=== PATIENT | female | born 1945 | race Caucasian/White ===

== ENCOUNTER 2018-08-10 12:17 | Inpatient (IN) | payer MEDICARE ==
[~2018-08-10] VITALS: Ht 165.1 cm; Wt 54.4 kg
--- NOTE | 2018-08-10 12:17 | NUR ---
PT [facility]RA FROM [facility] FOR SYNCOPAL EPISODE, PT VOMITTED ENVIRONMENTAL TECHNICIAN; PT AAOX4, PT ON MONITOR, VSS, NAD NOTED, MD AT BEDSIDE FOR EVAL
[2018-08-10] MEDS ORDERED: ONDANSETRON HCL/PF 4 MG/2 ML VIAL ONE (12:22)
[2018-08-10] MEDS ORDERED: ONDANSETRON HCL/PF 4 MG/2 ML VIAL IVP ONE (12:30)
[2018-08-10 12:31] LABS: BASOPHILS # (AUTO) 0.2 /CMM (0.0-0.2); EOSINOPHILS % (AUTO) 0.5 % (0.0-6.0); HEMATOCRIT 40 % (33-45); HEMOGLOBIN 13.4 g/dL (11.5-14.8); LYMPHOCYTES % (AUTO) 12.2 % (20.0-44.0); MEAN CORPUSCULAR HGB CONC 34 g/dl (31.0-36.0); MEAN CORPUSCULAR VOLUME 88 fL (82-100); MONOCYTES # (AUTO) 0.8 /CMM (0.1-1.30); MONOCYTES % (AUTO) 5.3 % (2.0-12.0); PLATELET COUNT (AUTO) 519 /CMM (150-450); RED BLOOD CELL COUNT(AUTO) 4.52 MIL/uL (4.0-5.2); WHITE BLOOD COUNT (AUTO) 16.1 K/uL (4.3-11.0)
[2018-08-10 12:48] LABS: CALCIUM, SERUM 10.3 mg/dL (8.5-10.1); CARBON DIOXIDE 31 mmol/L (21-32); CHLORIDE 99 mmol/L (98-107); GLUCOSE 139 mg/dL (74-106); POTASSIUM 3.1 mmol/L (3.5-5.1); SODIUM SERUM 137 mmol/L (136-145); UREA NITROGEN, BLOOD 17 mg/dL (7-18)
[2018-08-10 12:54] LABS: ALANINE AMINOTRANSFERASE 20 U/L (12-78); ALBUMIN 3.6 g/dL (3.4-5.0); ALKALINE PHOSPHATASE 78 U/L (46-116); ASPARTATE AMINOTRANSFERASE 19 U/L (15-37); BILIRUBIN,DIRECT 0.1 mg/dL (0.0-0.2); BILIRUBIN,TOTAL 0.4 mg/dL (0.2-1.0); TOTAL PROTEIN, SERUM 7.4 g/dL (6.4-8.2)
[2018-08-10] MEDS ORDERED: ASPIRIN 325 MG TABLET PO ONE (13:30)
[2018-08-10] MEDS ORDERED: ASPIRIN 325 MG TABLET ONE (13:56)
[2018-08-10] MEDS ORDERED: ATOR20TA PO (14:27)
[2018-08-10] MEDS ORDERED: LOSA100T31 PO (14:27)
[2018-08-10] MEDS ORDERED: AMLO5TAB9 PO (14:27)
--- NOTE | 2018-08-10 14:31 | NUR ---
BED 102
--- NOTE | 2018-08-10 15:09 | NUR ---
REPORT GIVEN TO MYRNA GREGG FOR EITAN
[2018-08-10] MEDS ORDERED: METF-440 PO (15:25)
--- NOTE | 2018-08-10 15:45 | NUR ---
PT TRANSFERRED TO 1ST FLOOR MS/TELE SEAN VIA ACLS PROTOCOL
[2018-08-10 15:48] VITALS: BP 161/84
--- NOTE | 2018-08-10 16:00 | NUR ---
telegraph service rater note received patient from er with dx syncope under care dr Uriostegui, alert oriented x3 ,family at bedside, tele monitor placed with nsr hr 89 , hospital orientation done , vs taken, belonging checked , plan of care discussed with patient , call light within reach ,bed in lowest and locked position, dr uriostegui at bedside , no sob noted no c]o pain or discomfort, respiration unlabored and even, will cont to monitor closely
[2018-08-10] MEDS ORDERED: ONDANSETRON HCL/PF 4 MG/2 ML VIAL IVP PRN (17:00)
[2018-08-10] MEDS ORDERED: MAG HYDROX/AL HYDROX/SIMETH 30 ML UDC PO PRN (17:00)
[2018-08-10] MEDS ORDERED: HYDROCODONE/APAP 5/325MG 1 EACH TABLET PO PRN (17:00)
[2018-08-10] MEDS ORDERED: DEXTROSE 50%-WATER 50 ML DISP.SYRIN IV PRN (17:00)
[2018-08-10] MEDS ORDERED: MAGNESIUM HYDROXIDE 30 ML UDC PO PRN (17:00)
[2018-08-10] MEDS ORDERED: ZOLPIDEM TARTRATE 5 MG TABLET PO PRN (17:00)
[2018-08-10] MEDS ORDERED: Z GUARD REMEDY 2 OZ OINT TP PRN (17:00)
[2018-08-10] MEDS ORDERED: INSULIN REGULAR, HUMAN 100 UNIT/ML 3 ML VIAL SQ PRN (17:00)
[2018-08-10] MEDS ORDERED: ACETAMINOPHEN 325 MG TABLET PO PRN (17:00)
[2018-08-10] MEDS: METFORMIN 500 MG TABLET PO SCH (17:41)
[2018-08-10] MEDS: POTASSIUM CHLORIDE 20 MEQ TAB.PRT.SR PO SCH ×2 (17:41→18:27)
[2018-08-10] MEDS: ENOXAPARIN SODIUM 40 MG/0.4 ML DISP.SYRIN SQ SCH (17:44)
[2018-08-10] MEDS: BLOOD SUGAR DIAGNOSTIC 1 EACH STRIP IN SCH (17:45)
[2018-08-10] MEDS: IV NS 0.9% 1,000 ML IV PRN (17:46)
--- NOTE | 2018-08-10 18:29 | NUR ---
INFORMATION MANAGER NOTE HAVING DINNER , ABLE TO EAT SELF , ALL NEEDS ATTENDED ASSISTED TO BSC, ABLE TO MAKE BM ,KEEP CLEAN DRY, CONT ON IVF ORDERED , NOT IN ACUTE DISTRESS
--- NOTE | 2018-08-10 19:39 | NUR ---
MEDICATION NURSE NOTE: RECEIVED PT ON BED ALERT AND AWAKE. ABLE TO MAKE NEEDS KNOWN. NO ACUTE DISTRESS NOTED. DENIES PAIN AND DISCOMFORT. NO COMPLAINTS OF NAUSEA AND VOMITING AT THIS TIME. ON ROOM AIR, SATURATING WELL. BREATHING EVEN AND UNLABORED WITH NORMAL RESPIRATIONS. ON TELE MONITOR SINUS RHYTHM HR 77BPM. IV ON RIGHT ANTECUBITAL #18 INTACT AND PATENT, FLUSHING WELL. KEPT CLEAN, DRY AND COMFORTABLE. CALL LIGHT PLACED WITHIN REACH. SIDE RAILS UP X2. BED LOCKED AND IN LOWEST POSITION. WILL CONTINUE TO MONITOR PT.
[2018-08-10 20:00] VITALS: BP 156/76
--- NOTE | 2018-08-10 20:11 | NUR ---
INITIAL CAROTID DUPLEX IMAGING SHOWED 50-70% OCCLUSION ON BILATERAL ICA. ADVISED ATTENDING RN (TERESA) OF PRELIMINARY FINDING AND CALLED MICHELLE DUMONT) FOR READING BY RADIOLOGIST.
[2018-08-10] MEDS: ATORVASTATIN 10 MG TABLET PO SCH (21:17)
[2018-08-11] VITALS: BP 152/83
[2018-08-11] MEDS: BLOOD SUGAR DIAGNOSTIC 1 EACH STRIP IN SCH ×3 (00:07→12:02)
[2018-08-11 04:00] VITALS: BP 145/85
[2018-08-11] MEDS: IV NS 0.9% 1,000 ML IV PRN (05:17)
[2018-08-11 06:41] LABS: BASOPHILS # (AUTO) 0.1 /CMM (0.0-0.2); BASOPHILS % (AUTO) 0.4 % (0.0-2.0); EOSINOPHILS % (AUTO) 1.1 % (0.0-6.0); HEMATOCRIT 37 % (33-45); HEMOGLOBIN 12.2 g/dL (11.5-14.8); LYMPHOCYTES # (AUTO) 1.5 /CMM (0.8-4.8); LYMPHOCYTES % (AUTO) 9.8 % (20.0-44.0); MEAN CORPUSCULAR HGB CONC 33 g/dl (31.0-36.0); MEAN CORPUSCULAR VOLUME 89 fL (82-100); MONOCYTES % (AUTO) 6.7 % (2.0-12.0); NEUTROPHILS # (AUTO) 12.2 /CMM (1.8-8.9); PLATELET COUNT (AUTO) 416 /CMM (150-450); RED BLOOD CELL COUNT(AUTO) 4.17 MIL/uL (4.0-5.2); WHITE BLOOD COUNT (AUTO) 14.9 K/uL (4.3-11.0)
--- NOTE | 2018-08-11 06:47 | NUR ---
WOOD PILER NOTE: NO CHANGES NOTED THROUGHOUT THE SHIFT. NO APPARENT DISTRESS NOTED. NO COMPLAINTS OF PAIN OR DISCOMFORT AT THIS TIME. NO SOB NOTED. ON TELE MONITOR SINUS RHYTHM HR 72BPM. ASSISTED PT ON BEDSIDE COMMODE, NO N/V/D NOTED. KEPT CLEAN, DRY AND COMFORTABLE. CALL LIGHT PLACED WITHIN REACH. SAFETY AND FALL PRECAUTIONS OBSERVED AND MAINTAINED. WILL ENDORSE TO DAY SHIFT RN FOR CONTINUITY OF CARE.
[2018-08-11 06:49] LABS: CALCIUM, SERUM 9.3 mg/dL (8.5-10.1); CARBON DIOXIDE 28 mmol/L (21-32); CHLORIDE 106 mmol/L (98-107); CREATININE 0.7 mg/dL (0.6-1.3); GLUCOSE 102 mg/dL (74-106); MAGNESIUM 1.6 mg/dL (1.8-2.4); PHOSPHORUS 3.3 mg/dL (2.5-4.9); POTASSIUM 3.9 mmol/L (3.5-5.1); SODIUM SERUM 143 mmol/L (136-145); UREA NITROGEN, BLOOD 12 mg/dL (7-18)
[2018-08-11 06:54] LABS: CHOLESTEROL 154 mg/dL (<200); HDL CHOLESTEROL 56 mg/dL (40-60); LDL 79 mg/dL (0-99); THYROID STIMULATING HORMONE 3.835 uIU/mL (0.358-3.74); TRIGLYCERIDES 131 mg/dL (30-150)
--- NOTE | 2018-08-11 07:35 | NUR ---
RV DETAILER OPENING NOTES RECEIVED BEDSIDE REPORT FROM [facility]. PATIENT SLEEPING ABLE TO AROUSE WITH VOICE AND TOUCH. ALERT AND ORIENTED X4. AMBULATORY TO BEDSIDE COMMODE NO SIGNS OR SYMPTOMS OF RESPIRATORY DISTRESS OR ACUTE PAIN NOTES SINUS RHYTHM ON MONITOR 70'S. SKIN INTACT IVF RUNNING IN RAC @75ML/HR . SAFETY PRECAUTIONS IN PLACE BED IN LOW POSITION CALL LIGHT WITHIN REACH WILL CONT TO MONITOR
--- NOTE | 2018-08-11 07:40 | NUR ---
RN OPENING NOTES RECEIVED BEDSIDE REPORT FROM EVENTS INTERN RN. PT IS ASLEEP AND IS AWAKEN TO TOUCH AND SOUND. PT IS A&OX3. PT HAS AN 18 GAUGE RIGHT AC RUNNING NS @75 MLHR. PT REPORTS NO PAIN AND NO SYMPTOMS OF RESPIRATORY DISTRESS. PT AMBULATES TO BEDSIDE COMMODE. PT HR IS 70'S. CALL LIGHT WITHIN REACH AND BED IS IN LOWEST POSITION AND LOCKED. WILL CONTINUE TO MONITOR
[2018-08-11 08:00] VITALS: BP 141/72
[2018-08-11] MEDS: AMLODIPINE BESYLATE 5 MG TABLET PO SCH (08:21)
[2018-08-11] MEDS: METFORMIN 500 MG TABLET PO SCH ×2 (08:21→16:24)
[2018-08-11] MEDS: ASPIRIN EC 81 MG TABLET.DR PO SCH (08:21)
[2018-08-11] MEDS: LOSARTAN POTASSIUM 50 MG TABLET PO SCH (08:22)
--- NOTE | 2018-08-11 09:04 | NUR ---
RN NOTES SPOKE WITH GONZALEZ IN REGARDS TO GETTING MEDICATION HOME LIST. CONCERNS FOR PATIENTS CARE AT HOME LIVES ALONE AND NO HELP. THIS IS HER 2ND EPISODE OF SYNCOPE EPISODE. WOULD LIKE AFTERSCHOOL TO FOLLOW UP WITH POSSIBLE HOME CARE.
[2018-08-11] MEDS ORDERED: Magnesium 1GM/D5W 100ML PREMIX 100 ML IV SCH (09:34)
[2018-08-11] MEDS: Magnesium 1GM/D5W 100ML PREMIX 100 ML IV SCH ×2 (10:12→11:31)
--- NOTE | 2018-08-11 10:21 | NUR ---
STAFF CYTOTECHNOLOGIST NOTES RECEIVED MEDS FROM JOINER APPRENTICE VIA FAX
[2018-08-11] MEDS: CARBIDOPA/LEVODOPA 25/100 MG 1 UDTAB PO SCH ×3 (11:31→16:24)
[2018-08-11 12:00] VITALS: BP 177/93
[2018-08-11] MEDS: LOPERAMIDE HCL (2 MG CAP) 2 MG CAPSULE PO PRN (13:42)
[2018-08-11 15:20] LABS: ABG BASE EXCESS 2.2 mmol/L; ABG OXYGEN SATURATION 96.7 % (92.0-98.5); ABG PCO2 37.2 mmHg (35.0-45.0); ABG PH 7.461 (7.350-7.450); ABG PO2 88.2 mmHg (75.0-100.0); COHb 0.7 % (0.5-1.5); MetHb 0.5 % (0.0-1.5); O2Hb 95.5 % (94.0-97.0); SITE, ABG Right Radial; VENT MODE, BG RA
[2018-08-11 16:00] VITALS: BP 172/76
[2018-08-11] MEDS: ENOXAPARIN SODIUM 40 MG/0.4 ML DISP.SYRIN SQ SCH (16:27)
[2018-08-11] MEDS ORDERED: INSULIN REGULAR, HUMAN 100 UNIT/ML 3 ML VIAL SQ PRN ×2 (16:30→17:30)
[2018-08-11] MEDS ORDERED: BLOOD SUGAR DIAGNOSTIC 1 EACH STRIP IN PRN (16:30)
[2018-08-11] MEDS ORDERED: DEXTROSE 50%-WATER 50 ML DISP.SYRIN IV PRN (16:30)
--- NOTE | 2018-08-11 19:03 | NUR ---
RN CLOSING NOTES GAVE BEDSIDE REPORT TO CHARGING OPERATOR RN. PT IS AWAKE TO TOUCH AND SOUND. PT IS A&OX3. PT HAS AN 18 GAUGE RIGHT AC RUNNING NS @75 MLHR. PT REPORTS NO PAIN AND NO SYMPTOMS OF RESPIRATORY DISTRESS. PT AMBULATES TO BEDSIDE COMMODE. PT HR IS 70'S. CALL LIGHT WITHIN REACH AND BED IS IN LOWEST POSITION AND LOCKED. ENDORSED CONTINUITY OF CARE TO CHARGING OPERATOR RN
--- NOTE | 2018-08-11 19:30 | NUR ---
TUCK POINTER NOTE: RECEIVED PT ON BED ALERT AND AWAKE. ABLE TO MAKE NEEDS KNOWN. NO APPARENT DISTRESS NOTED. DENIES PAIN AND DISCOMFORT AT THIS TIME. NO COMPLAINTS OF NAUSEA AND VOMITING. ON ROOM AIR, SATURATING WELL. BREATHING EVEN AND UNLABORED WITH NORMAL RESPIRATIONS. ON TELE MONITOR SINUS RHYTHM HR 78BPM. IV ON RIGHT ANTECUBITAL #18 INTACT AND PATENT, IVF INFUSING WELL. NO SIGNS/SYMPTOMS OF ASPIRATION NOTED. KEPT CLEAN, DRY AND COMFORTABLE. CALL LIGHT PLACED WITHIN REACH. SIDE RAILS UP X2. BED LOCKED AND IN LOWEST POSITION. WILL CONTINUE TO MONITOR PT.
[2018-08-11 20:00] VITALS: BP 159/79
[2018-08-11] MEDS: ATORVASTATIN 10 MG TABLET PO SCH (21:01)
[2018-08-12] VITALS: BP 152/70
[2018-08-12] MEDS: IV NS 0.9% 1,000 ML IV PRN (02:33)
[2018-08-12 04:00] VITALS: BP 150/72
[2018-08-12 06:25] LABS: BASOPHILS # (AUTO) 0.1 /CMM (0.0-0.2); BASOPHILS % (AUTO) 0.5 % (0.0-2.0); EOSINOPHILS % (AUTO) 0.9 % (0.0-6.0); HEMATOCRIT 40 % (33-45); HEMOGLOBIN 13.2 g/dL (11.5-14.8); LYMPHOCYTES % (AUTO) 12.5 % (20.0-44.0); MEAN CORPUSCULAR HGB CONC 33 g/dl (31.0-36.0); MEAN CORPUSCULAR VOLUME 89 fL (82-100); MONOCYTES # (AUTO) 0.8 /CMM (0.1-1.30); MONOCYTES % (AUTO) 4.7 % (2.0-12.0); NEUTROPHILS # (AUTO) 13.4 /CMM (1.8-8.9); NEUTROPHILS % (AUTO) 81.4 % (43.0-81.0); PLATELET COUNT (AUTO) 488 /CMM (150-450); RED BLOOD CELL COUNT(AUTO) 4.46 MIL/uL (4.0-5.2); WHITE BLOOD COUNT (AUTO) 16.4 K/uL (4.3-11.0)
[2018-08-12 06:41] LABS: CALCIUM, SERUM 9.2 mg/dL (8.5-10.1); CARBON DIOXIDE 31 mmol/L (21-32); CHLORIDE 104 mmol/L (98-107); CREATININE 0.6 mg/dL (0.6-1.3); GLUCOSE 88 mg/dL (74-106); MAGNESIUM 1.6 mg/dL (1.8-2.4); PHOSPHORUS 3.1 mg/dL (2.5-4.9); POTASSIUM 3.6 mmol/L (3.5-5.1); SODIUM SERUM 142 mmol/L (136-145); UREA NITROGEN, BLOOD 8 mg/dL (7-18)
--- NOTE | 2018-08-12 06:42 | NUR ---
ARTILLERY METEOROLOGICAL MAN NOTE: NO CHANGES NOTED THROUGHOUT THE SHIFT. NO APPARENT DISTRESS NOTED. DENIES PAIN AND DISCOMFORT AT THIS TIME. NO SOB NOTED. ON TELE MONITOR SINUS RHYTHM HR 72BPM. NO N/V/D NOTED. KEPT CLEAN, DRY AND COMFORTABLE. CALL LIGHT PLACED WITHIN REACH. SAFETY AND FALL PRECAUTIONS OBSERVED AND MAINTAINED. WILL ENDORSE TO DAY SHIFT RN FOR CONTINUITY OF CARE.
[2018-08-12 06:43] LABS: APPEARANCE,URINE CLEAR (CLEAR); BILIRUBIN,URINE NEGATIVE (NEGATIVE); BLOOD, URINE NEGATIVE Ery/uL (NEGATIVE); COLOR,URINE YELLOW (YELLOW); KETONES,URINE NEGATIVE (NEGATIVE); LEUKOCYTE ESTERASE ,URINE NEGATIVE (NEGATIVE); NITRITE, URINE NEGATIVE (NEGATIVE); PROTEIN,URINE NEGATIVE (NEGATIVE); UGLUCOSE NEGATIVE (NEGATIVE); UROBILINOGEN,URINE 0.2 EU/dL (0.2)
--- NOTE | 2018-08-12 07:37 | NUR ---
SUPERMARKET MANAGER OPENING NOTES RECEIVED BEDSIDE REPORT FROM [facility]. PATIENT SLEEPING ABLE TO AROUSE WITH VOICE AND TOUCH. ALERT AND ORIENTED X4. NO SIGNS OR SYMPTOMS OF RESPIRATORY DISTRESS OR ACUTE PAIN NOTES AMBULATORY IN ROOM. SINUS RHYTHM ON MONITOR 70'S. SKIN INTACT IVF RUNNING IN RAC @75ML/HR WILL CONT TO MONITOR LABS AND DIAGNOSTIC TEST . SAFETY PRECAUTIONS IN PLACE BED IN LOW POSITION CALL LIGHT WITHIN REACH WILL CONT TO MONITOR
[2018-08-12 08:00] VITALS: BP 192/88
[2018-08-12] MEDS: BLOOD SUGAR DIAGNOSTIC 1 EACH STRIP IN SCH ×4 (08:12→21:17)
[2018-08-12] MEDS: INSULIN REGULAR, HUMAN 100 UNIT/ML 3 ML VIAL SQ PRN ×2 (08:19→21:18)
[2018-08-12] MEDS: METFORMIN 500 MG TABLET PO SCH ×2 (08:48→18:27)
[2018-08-12] MEDS: ASPIRIN EC 81 MG TABLET.DR PO SCH (08:50)
[2018-08-12] MEDS: LOSARTAN POTASSIUM 50 MG TABLET PO SCH (08:50)
[2018-08-12] MEDS: CARBIDOPA/LEVODOPA 25/100 MG 1 UDTAB PO SCH ×3 (08:50→18:27)
[2018-08-12] MEDS: AMLODIPINE BESYLATE 5 MG TABLET PO SCH (08:50)
--- NOTE | 2018-08-12 09:46 | NUR ---
FINANCIAL AID OFFICER NOTES IV 18 GAUGE REMOVED D/T INFILTRATION. WILL WAIT TILL MD COMES IN TO REPLACE IF PT IS BEING DC
--- NOTE | 2018-08-12 11:05 | NUR ---
VISITING PROFESSOR NOTES NEW IV PLACE #22 GAUGE IN LFA. PATENT AND GOOD BLOOD RETURN
[2018-08-12] MEDS: Magnesium 1GM/D5W 100ML PREMIX 100 ML IV SCH ×2 (11:08→11:21)
[2018-08-12 12:00] VITALS: BP 174/106
[2018-08-12] MEDS: METOPROLOL TARTRATE 25 MG TABLET PO SCH ×2 (12:34→21:17)
--- NOTE | 2018-08-12 15:29 | NUR ---
FUNERAL PLANNING COUNSELOR NOTES MESSAGED DR GRANGER WITH US OF RENAL ARTERY RESULTS
[2018-08-12 16:00] VITALS: BP 153/93
[2018-08-12] MEDS: ENOXAPARIN SODIUM 40 MG/0.4 ML DISP.SYRIN SQ SCH (18:28)
--- NOTE | 2018-08-12 18:29 | NUR ---
BEVERAGE MANAGER NOTES SPOKE WITH VIVIANE ESCOBEDO IN REGARDS TO PATIENT NOW REQUESTING TO GO TO [facility] PREFERS TO GO TO [facility].
[2018-08-12 20:00] VITALS: BP 182/88
--- NOTE | 2018-08-12 20:03 | NUR ---
IMAGE PROCESSING ENGINEER NOTES RECEIVED REPORT FROM ZAINAB NORRIS. PATIENT A/A/O X3, ABLE TO MAKE NEEDS KNOWN. BREATHING EVEN & UNLABORED, TOLERATING ROOM AIR. ON TELE W/ SINUS RHYTHM, HR 70S. LEFT FOREARM IV #22 INTACT & PATENT W/ DRESSING CDI & IVF NS INFUSING WELL @ 75 ML/HR. NOTED W/ STEADY GAIT WHEN ASSISTED TO BATHROOM & ABLE TO TURN INDEPENDENTLY IN BED. SAFETY MEASURES IN PLACE W/ SIDE RAILS UP & CALL LIGHT WITHIN REACH. INSTRUCTED TO CALL FOR ASSISTANCE.
[2018-08-12] MEDS: ATORVASTATIN 10 MG TABLET PO SCH (21:17)
[2018-08-13] VITALS: BP 164/78
--- NOTE | 2018-08-13 01:00 | NUR ---
VBA PROGRAMMER NOTES INFORMED DR PRAKASH OF PATIENT'S BP IN 160-170S & SCHEDULED METOPROLOL ALREADY GIVEN. PER OLINDA NO NEW ORDERS @ THIS TIME & JUST CONTINUE TO MONITOR.
[2018-08-13 04:00] VITALS: BP 166/87
[2018-08-13 06:15] LABS: BASOPHILS # (AUTO) 0.1 /CMM (0.0-0.2); BASOPHILS % (AUTO) 0.4 % (0.0-2.0); EOSINOPHILS % (AUTO) 0.9 % (0.0-6.0); HEMATOCRIT 40 % (33-45); LYMPHOCYTES # (AUTO) 1.1 /CMM (0.8-4.8); LYMPHOCYTES % (AUTO) 9.3 % (20.0-44.0); MEAN CORPUSCULAR HGB CONC 33 g/dl (31.0-36.0); MEAN CORPUSCULAR VOLUME 89 fL (82-100); MONOCYTES # (AUTO) 0.7 /CMM (0.1-1.30); MONOCYTES % (AUTO) 5.5 % (2.0-12.0); NEUTROPHILS % (AUTO) 83.9 % (43.0-81.0); PLATELET COUNT (AUTO) 408 /CMM (150-450); RED BLOOD CELL COUNT(AUTO) 4.45 MIL/uL (4.0-5.2); WHITE BLOOD COUNT (AUTO) 11.9 K/uL (4.3-11.0)
[2018-08-13 06:26] LABS: CALCIUM, SERUM 9.2 mg/dL (8.5-10.1); CARBON DIOXIDE 30 mmol/L (21-32); CHLORIDE 105 mmol/L (98-107); CREATININE 0.6 mg/dL (0.6-1.3); GLUCOSE 101 mg/dL (74-106); MAGNESIUM 1.5 mg/dL (1.8-2.4); PHOSPHORUS 2.7 mg/dL (2.5-4.9); POTASSIUM 3.4 mmol/L (3.5-5.1); SODIUM SERUM 142 mmol/L (136-145); UREA NITROGEN, BLOOD 9 mg/dL (7-18)
[2018-08-13] MEDS: LOPERAMIDE HCL (2 MG CAP) 2 MG CAPSULE PO PRN (06:49)
--- NOTE | 2018-08-13 07:00 | NUR ---
ALMOND HULLER OPENING NOTES RECEIVED REPORT FROM MANAGER OF NETWORK NURSE. PATIENT SLEEPING ABLE TO AROUSE WITH VOICE AND TOUCH. ALERT AND ORIENTED X3. NO SIGNS OR SYMPTOMS OF RESPIRATORY DISTRESS OR ACUTE PAIN NOTED, AMBULATORY IN ROOM. SINUS RHYTHM ON MONITOR 80'S. SKIN INTACT IV SITE FA #22, CLEAN, DRY, AND INTACT. CONT TO MONITOR LABS AND DIAGNOSTIC TEST. SAFETY PRECAUTIONS IN PLACE, BED IN LOW POSITION, CALL LIGHT WITHIN REACH, WILL CONT TO MONITOR.
[2018-08-13] MEDS: BLOOD SUGAR DIAGNOSTIC 1 EACH STRIP IN SCH ×4 (07:55→21:04)
[2018-08-13 08:00] VITALS: BP_SYST 150; BP_SYST 157; BP_DIAS 83; BP_DIAS 85
[2018-08-13] MEDS: METFORMIN 500 MG TABLET PO SCH ×2 (09:44→17:30)
[2018-08-13] MEDS: LOSARTAN POTASSIUM 50 MG TABLET PO SCH (09:44)
[2018-08-13] MEDS: METOPROLOL TARTRATE 25 MG TABLET PO SCH ×2 (09:44→20:42)
[2018-08-13] MEDS: ASPIRIN EC 81 MG TABLET.DR PO SCH (09:44)
[2018-08-13] MEDS: AMLODIPINE BESYLATE 5 MG TABLET PO SCH (09:45)
[2018-08-13] MEDS: CARBIDOPA/LEVODOPA 25/100 MG 1 UDTAB PO SCH ×3 (09:45→17:30)
[2018-08-13] MEDS ORDERED: POTASSIUM CHLORIDE 20 MEQ TAB.PRT.SR PO SCH (11:30)
[2018-08-13] MEDS: Magnesium 1GM/D5W 100ML PREMIX 100 ML IV SCH ×2 (11:32→13:38)
[2018-08-13 12:00] VITALS: BP 161/84
[2018-08-13] MEDS ORDERED: Blood Sugar Diagnostic IN (12:02)
[2018-08-13] MEDS ORDERED: METO25TA20 PO (12:02)
[2018-08-13] MEDS ORDERED: CARB1TAB21 PO (12:02)
[2018-08-13] MEDS ORDERED: LOPE2CAP40 PO (12:02)
[2018-08-13] MEDS: SPIRONOLACTONE 25 MG TABLET PO SCH (13:38)
--- NOTE | 2018-08-13 13:43 | NUR ---
TEL nurse , scanty amt of bloody noted on diaper, patient stated that came from rectum and history of hemorroid , was notified re; above and ok to discharge today
[2018-08-13 16:00] VITALS: BP 180/86
[2018-08-13] MEDS: CLONIDINE HCL 0.1 MG TABLET PO PRN (17:30)
[2018-08-13] MEDS: ENOXAPARIN SODIUM 40 MG/0.4 ML DISP.SYRIN SQ SCH (17:45)
--- NOTE | 2018-08-13 18:20 | NUR ---
SUPERVISOR TRANSCRIBING OPERATORS NOTES PATIENT'S BLOOD PRESSURE 180/68. MD MADE AWARE. MD ORDERED CLONIDINE 0.1MG PO STAT. MD ORDER ATTENDED.
[2018-08-13] MEDS ORDERED: CLONIDINE HCL 0.1 MG TABLET PO STA (18:30)
--- NOTE | 2018-08-13 19:00 | NUR ---
INSTRUMENT MECHANICS SUPERVISOR CLOSING NOTES PATIENT RESTING IN BED. ALERT AND ORIENTED X3. NO SIGNS OR SYMPTOMS OF RESPIRATORY DISTRESS OR ACUTE PAIN NOTED, AMBULATORY IN ROOM. SINUS RHYTHM ON MONITOR 80'S. SKIN INTACT IV SITE FA #22, CLEAN, DRY, AND INTACT. SAFETY PRECAUTIONS IN PLACE, BED IN LOW POSITION, CALL LIGHT WITHIN REACH, ENDORSED TO SHORE HAND DREDGE OR BARGE NURSE FOR EITAN.
--- NOTE | 2018-08-13 19:59 | NUR ---
ELECTRICAL ENGINEERING DIRECTOR OPENING NOTES RECEIVED PATIENT IN BED AWAKE, ALERT AND ORIENTED X3, VERBALLY RESPONSIVE, ABLE TO MAKE NEEDS KNOWN. BREATHING EVEN AND UNLABORED. NO SOB NOTED. TOLERATING ROOM AIR. NO COMPLAINTS OF PAIN OR DISCOMFORT. NO FACIAL GRIMACING. IV ON LEFT FOREARM INTACT AND PATENT. SKIN DRY AND WARM TO TOUCH. AFEBRILE. ANTICIPATING DISCHARGE. ALL OTHER NEEDS ATTENDED TO. SAFETY MEASURES IN PLACE. CALL LIGHT WITHIN REACH. WILL CONTINUE TO MONITOR.
[2018-08-13 20:00] VITALS: BP 156/89
[2018-08-13] MEDS: ATORVASTATIN 10 MG TABLET PO SCH (21:00)
[2018-08-13] MEDS: INSULIN REGULAR, HUMAN 100 UNIT/ML 3 ML VIAL SQ PRN (21:08)
--- NOTE | 2018-08-13 22:29 | NUR ---
SALESFORCE TRAINER NOTES PATIENT WITH ANTICIPATED DISCHARGED TO [facility], BUT HELD DUE TO A HIGH BLOOD PRESSURE OF 180/68 PRN MEDICATION OF CLONIDINE GIVEN DURING DAY SHIFT. AT 1999, BP DECREASED TO 156/84. PATIENT ALSO TOOK SCHEDULED METOPROLOL. BP DECREASED TO 149/74. CALLED GISELL TO ACTIVATE CLOTH MERCERIZING SUPERVISOR WITH ETA OF 2315. CALLED [facility] AND SPOKE WITH MYRNA BUSH TO GIVE REPORT. HOWEVER, PER ELEAZ[facility], THEY CANNOT ACCEPT PATIENT AFTER 2099 DUE TO THE FACT THAT THERE WILL ONLY BE 1 RN FOR 11-7 SHIFT AND THAT RN WILL BE PASSING MEDS AND CANNOT TAKE ON THE WORKLOAD. REQUESTED FOR PATIENT TO BE DISCHARGED TOMORROW AFTER BREAKFAST INSTEAD. INFORMED ELEAZ[facility] THAT THE DISCHARGE HAS BEEN ARRANGED SINCE DAY SHIFT AND MD WANTS PATIENT TO BE DISCHARGED ALREADY. PER ELEAZAR, THEY REALLY CANNOT TAKE PATIENT DUE TO ONLY 1 RN. CHARGE NURSE MADE AWARE. MADISON EPPERSON ALSO MADE AWARE AND STATED THAT THERE'S NOTHING WE CAN DO. [facility] WAS CALLED AGAIN AND CANCELLED TRIP FOR TONIGHT. RESCHEDULED TRIP FOR TOMORROW MORNING AT 9:00AM TRIP# [id number]. CALLED [facility] AND SPOKE TO MYRNA MATHEW AND MADE AWARE OF DISCHARGE TOMORROW AM INSTEAD. Addendum: 08/13/18 at 2241 by REINALDO MARIE RN PATIENT MADE AWARE AND VERBALIZED UNDERSTANDING.
[2018-08-14] VITALS: BP 147/79
[2018-08-14 04:00] VITALS: BP 137/70
--- NOTE | 2018-08-14 05:47 | NUR ---
INSULATION MACHINE OPERATOR NOTES PATIENT HAD 2 LOOSE STOOLS THROUGHOUT THE SHIFT. BROWN COLORED. WILL ENDORSE TO ONCOMING NURSE TO COLLECT 3RD LOOSE STOOL AND SEND FOR CDIFF TESTING.
[2018-08-14] MEDS: BLOOD SUGAR DIAGNOSTIC 1 EACH STRIP IN SCH (06:30)
[2018-08-14] MEDS: INSULIN REGULAR, HUMAN 100 UNIT/ML 3 ML VIAL SQ PRN (06:30)
--- NOTE | 2018-08-14 06:34 | NUR ---
TEAM LEADER SURGERY CLOSING NOTES PATIENT RESTING IN BED. NO ACUTE CHANGES THROUGHOUT SHIFT. BREATHING EVEN AND UNLABORED. NO SOB NOTED. TOLERATING ROOM AIR. NO COMPLAINTS OF PAIN OR DISCOMFORT. NO FACIAL GRIMACING. IV ON LEFT FOREARM INTACT AND PATENT. SKIN DRY AND WARM TO TOUCH. AFEBRILE. KEPT CLEAN DRY AND COMFORTABLE. ALL OTHER NEEDS ATTENDED TO. SAFETY MEASURES IN PLACE. CALL LIGHT WITHIN REACH. WILL ENDORSE TO ONCOMING NURSE FOR EITAN.
[2018-08-14 06:46] LABS: CALCIUM, SERUM 9.2 mg/dL (8.5-10.1); CARBON DIOXIDE 28 mmol/L (21-32); CHLORIDE 101 mmol/L (98-107); CREATININE 0.6 mg/dL (0.6-1.3); GLUCOSE 106 mg/dL (74-106); MAGNESIUM 1.6 mg/dL (1.8-2.4); POTASSIUM 3.5 mmol/L (3.5-5.1); SODIUM SERUM 138 mmol/L (136-145); UREA NITROGEN, BLOOD 12 mg/dL (7-18)
--- NOTE | 2018-08-14 06:50 | NUR ---
NON CLINICAL ADVISOR NOTES 3RD LOOSE STOOL SAMPLE SENT TO LAB. REQUISITION FORM FILLED OUT AND TAKEN ALONG WITH STOOL.
[2018-08-14 08:00] VITALS: BP 148/79
[2018-08-14] MEDS ORDERED: Magnesium 1GM/D5W 100ML PREMIX PIGGYBACK IV STA (08:10)
[2018-08-14] MEDS: CARBIDOPA/LEVODOPA 25/100 MG 1 UDTAB PO SCH (08:15)
[2018-08-14] MEDS: ASPIRIN EC 81 MG TABLET.DR PO SCH (08:15)
[2018-08-14] MEDS: METFORMIN 500 MG TABLET PO SCH (08:15)
[2018-08-14] MEDS: LOSARTAN POTASSIUM 50 MG TABLET PO SCH (08:15)
[2018-08-14] MEDS: AMLODIPINE BESYLATE 5 MG TABLET PO SCH (08:16)
[2018-08-14] MEDS: METOPROLOL TARTRATE 25 MG TABLET PO SCH (08:16)
[2018-08-14] MEDS: SPIRONOLACTONE 25 MG TABLET PO SCH (08:18)
[2018-08-14] MEDS ORDERED: Magnesium 1GM/D5W 100ML PREMIX 100 ML IV SCH (08:30)
[2018-08-14 09:00] VITALS: BP 163/70
[2018-08-14] MEDS: CLONIDINE HCL 0.1 MG TABLET PO PRN (09:28)
[2018-08-14 10:00] VITALS: BP 152/74
--- NOTE | 2018-08-14 10:15 | NUR ---
RN NOTE PT DISCHARGED TO [facility], VIA AMBULANCE, IN STABLE CONDITION, BP WAS ELEVATED, BUT WAS STABILIZED WITH MEDICATIONS, 152/74 MMHG AT TIME OF LEAVING. IV REMOVED, ID BAND REMOVED, REPORT WAS GIVEN TO DARIELA AT [facility]. DISCHARGE INSTRUCTION PROVIDED, EXIT CARE DONE, TEACHINGS ARE DONE TO PT, PT VERBALIZED UNDERSTANDING. PPAERS SIGNED AND PROVIDED TO AMBULANCE.
== END 2018-08-14 10:14 | DRG 90 ==
LOC: ER 12:20 → EDSEX 12:20 → TELE1 15:18
DX: S06.0X0A Concussion without loss of consciousness, initial encounter (principal); R55 Syncope and collapse; E11.9 Type 2 diabetes mellitus without complications; I10 Essential (primary) hypertension; D72.829 Elevated white blood cell count, unspecified; E83.52 Hypercalcemia; E87.6 Hypokalemia; G20 Parkinson's disease; Z86.73 Personal history of transient ischemic attack (TIA), and cerebral infarction without residual deficits; R26.9 Unspecified abnormalities of gait and mobility; R41.3 Other amnesia; W01.0XXA Fall on same level from slipping, tripping and stumbling without subsequent striking against object, initial encounter; Y92.89 Other specified places as the place of occurrence of the external cause; R19.7 Diarrhea, unspecified; I70.1 Atherosclerosis of renal artery; R78.9 Finding of unspecified substance, not normally found in blood
CPT/HCPCS: 36415; 36600; 70450-TC; 71045-TC; 80048-TC; 80061-TC; 80076-TC; 80305; 81000-TC; 82803-TC; 82962-TC; 83735-TC; 84100-TC; 84443-TC; 84484-TC; 85025-TC; 87081-TC; 93307-TC; 93880-TC; G0378; J1650; J1815; J2405; J3475; J7030; J7042

== ENCOUNTER 2020-10-05 13:10 | Inpatient (IN) | payer MEDICARE ==
[~2020-10-05] VITALS: Ht 165.1 cm; Wt 70.8 kg
[~2020-10-05 13:10] MED LIST: AMLO-212 PO; ATOR20TA PO; Blood Sugar Diagnostic IN; CARB1TAB21 PO; LOPE2CAP40 PO; LOSA100T31 PO; METF-440 PO; METO25TA20 PO
[2020-10-05] MEDS ORDERED: IV NS 0.9% 500 ML BAG IV ONE (13:30)
--- NOTE | 2020-10-05 13:30 | NUR ---
[id number] [facility] C/O DIZZINESS SINCE THIS AM. BG 132, FACILA BRUISING NOTED S/P FALL LAST WEEK. RATES GENERALIZED PAIN 5/10. IN ROOM AIR AND DENIES SOB. RESPIRATION REGULAR AND UNLABORED. ATTACHED ON A MONITOR. WILL CONTINUE TO MONITOR THE PATIENT
[2020-10-05 13:42] LABS: BASOPHILS # (AUTO) 0.1 /CMM (0.0-0.2); BASOPHILS % (AUTO) 0.7 % (0.0-2.0); EOSINOPHILS % (AUTO) 2.1 % (0.0-6.0); HEMATOCRIT 40 % (33-45); HEMOGLOBIN 13.2 g/dL (11.5-14.8); LYMPHOCYTES # (AUTO) 1.7 /CMM (0.8-4.8); LYMPHOCYTES % (AUTO) 21.8 % (20.0-44.0); MEAN CORPUSCULAR HGB CONC 33 g/dl (31.0-36.0); MEAN CORPUSCULAR VOLUME 92 fL (82-100); MONOCYTES # (AUTO) 0.5 /CMM (0.1-1.30); NEUTROPHILS # (AUTO) 5.2 /CMM (1.8-8.9); NEUTROPHILS % (AUTO) 68.4 % (43.0-81.0); PLATELET COUNT (AUTO) 314 /CMM (150-450); RED BLOOD CELL COUNT(AUTO) 4.35 MIL/uL (4.0-5.2); WHITE BLOOD COUNT (AUTO) 7.6 K/uL (4.3-11.0)
[2020-10-05 13:55] LABS: ALBUMIN 3.6 g/dL (3.4-5.0); BILIRUBIN,DIRECT 0.1 mg/dL (0.0-0.2); BILIRUBIN,TOTAL 0.3 mg/dL (0.2-1.0); CALCIUM, SERUM 9.3 mg/dL (8.5-10.1); CREATININE 0.6 mg/dL (0.6-1.3); TOTAL PROTEIN, SERUM 7.1 g/dL (6.4-8.2)
--- NOTE | 2020-10-05 14:52 | NUR ---
MOVE SHEET SUBMITTED AND CALLED FOR MS BED.
[2020-10-05] MEDS ORDERED: MECLIZINE HCL 12.5 MG TABLET PO ONE (15:00)
[2020-10-05] MEDS ORDERED: NEBI5TAB8 PO (15:17)
[2020-10-05] MEDS ORDERED: FOLI0.4T6 PO (15:17)
[2020-10-05] MEDS ORDERED: VENL150C58 PO (15:17)
[2020-10-05] MEDS ORDERED: METH2.5T14 PO (15:17)
[2020-10-05] MEDS ORDERED: CYAN-51 PO (15:17)
[2020-10-05] MEDS ORDERED: PRIM50TA27 PO (15:17)
[2020-10-05] MEDS ORDERED: GABA-532 PO (15:17)
[2020-10-05] MEDS ORDERED: METF750T46 PO (15:17)
[2020-10-05] MEDS ORDERED: LAMO200T10 PO (15:17)
[2020-10-05] MEDS ORDERED: LACT1CAP71 PO (15:17)
[2020-10-05] MEDS ORDERED: LEVO50TA8 PO (15:17)
[2020-10-05] MEDS ORDERED: MULT-447 PO (15:17)
[2020-10-05] MEDS ORDERED: CLOP75TA15 PO (15:17)
--- NOTE | 2020-10-05 15:54 | NUR ---
COVID SWAB DONE AND SENT TO THE LAB
--- NOTE | 2020-10-05 16:15 | NUR ---
[facility] CALLED SCRAPER BURRER PAGED.
--- NOTE | 2020-10-05 16:45 | NUR ---
REQUESTED MS BED FROM [employer] ENGLISH TEACHER
--- NOTE | 2020-10-05 17:15 | NUR ---
GOT BED 328-2
--- NOTE | 2020-10-05 18:53 | NUR ---
DR WEBB IS MADE AWARE OF BP 161/86. PER NO NEW ORDERS.
--- NOTE | 2020-10-05 19:42 | NUR ---
RAPID COVID SWAB SENT TO LAB
--- NOTE | 2020-10-05 20:06 | NUR ---
COVID IS NEGATIVE
--- NOTE | 2020-10-05 20:07 | NUR ---
TELE 112-1
--- NOTE | 2020-10-05 20:28 | NUR ---
report given to edna
[2020-10-05 21:00] VITALS: BP 156/88
--- NOTE | 2020-10-05 21:00 | NUR ---
RN ADMITTING NOTES RECEIVED PT IN BED, A/O X4 PT IS COOPERATIVE. ON MED SURG MONITORING AT THIS TIME, AWAITING MD ADMITTING ORDERS. PT ON ROOM AIR, TOLERATING WELL NO SOB OR RESP DISTRESS, BREATHING EVEN AND UNLABORED. O2 SAT IS 98% AT THIS TIME. PLACED PT IN GOWN, BED BATH DONE, LINENS CHANGES, BRUISING AROUND EYES, SKIN INTACT. NEEDS ATTENDED AT THIS TIME. PT DENIES PAIN, N/V. SAFETY MEASURES IN PLACE. HOB ELEVATED. SIDE RAILS UP X2, BED LOCKED IN LOWEST POSITION WITH BED ALARM ON. CALL LIGHT WITHIN REACH. WILL CONT TO MONITOR THROUGHOUT SHIFT.
--- NOTE | 2020-10-05 21:06 | NUR ---
pt was transferrred to rm 112 in stable condition.
--- NOTE | 2020-10-05 22:15 | NUR ---
RN NOTE BELONGINGS AT BEDSIDE, ACCOUNTED FOR. INCLUDED 1 SHIRT, 1 UNDERWEAR.
--- NOTE | 2020-10-06 00:13 | NUR ---
RN NOTE NOTIFIED COMPUTER GRAPHICS ILLUSTRATOR MD CANALES FOR ADMISSION ORDER FOLLOW UP.
[2020-10-06] MEDS ORDERED: ONDANSETRON HCL/PF 4 MG/2 ML VIAL IVP PRN (02:00)
[2020-10-06] MEDS ORDERED: ACETAMINOPHEN 325 MG TABLET PO PRN (02:00)
[2020-10-06] MEDS ORDERED: MECLIZINE HCL 12.5 MG TABLET PO PRN (02:00)
[2020-10-06] MEDS ORDERED: MAG HYDROX/AL HYDROX/SIMETH 30 ML UDC PO PRN (02:00)
[2020-10-06] MEDS ORDERED: MAGNESIUM HYDROXIDE 30 ML UDC PO PRN (02:00)
[2020-10-06] MEDS ORDERED: ZOLPIDEM TARTRATE 5 MG TABLET PO PRN (02:00)
[2020-10-06] MEDS ORDERED: Z GUARD REMEDY 2 OZ OINT TP PRN (02:00)
[2020-10-06] MEDS ORDERED: HYDROCODONE/APAP 5/325MG TABLET PO PRN (02:00)
[2020-10-06 04:00] VITALS: BP 151/77
--- NOTE | 2020-10-06 07:04 | NUR ---
RN CLOSING NOTES PT REMAINS IN BED. RESTING NO SIGNIFICANT CHANGES IN PT CONDITION. PT WAS COOPERATIVE. PT DENIES PAIN. PT REMAINS ON ROOM AIR. NO S/S OF RESP DISTRESS OR SOB. BREATHING EVEN AND UNLABORED. ALL NEEDS ATTENDED. NO DISTRESS NOTED. SAFETY MEASURES IN PLACE. HOB ELEVATED. SIDE RAILS X3, BED LOCKED IN LOWEST POSITION WITH BED ALARM ON. CALL LIGHT WITHIN REACH. WILL ENDORSE TO DAY SHIFT NURSE FOR CONTINUATION OF CARE.
[2020-10-06 08:00] VITALS: BP 158/84
[2020-10-06 12:00] VITALS: BP 130/75
[2020-10-06] MEDS: METFORMIN 850 MG TABLET PO SCH (18:42)
[2020-10-06] MEDS: CARVEDILOL 3.125 MG TABLET PO SCH (18:42)
--- NOTE | 2020-10-06 19:25 | NUR ---
RN CLOSING NOTE Patient is alert and oriented Patient is breathing even and unlabored. Patient evaluated by therapy today and ordered for stand by assist. Patient teaching done regarding safety andf fall precautions. No c/o pain or discomfort.Patient will be monitored. Call light within reach.
--- NOTE | 2020-10-06 19:30 | NUR ---
PLAIN CLOTHES POLICE OFFICER OPENING NOTE RECEIVED PATIENT IN BED. A/OX4. TOLERATING ROOM AIR, RESPIRATIONS ARE EVEN AND UNLABORED. NO S/S SOB NOTED. NO C/O PAIN. EXTERNAL TELE MONITOR READS SINUS RAUL HR 58. IN NO APPARENT DISTRESS. IV ACCES SIN RAC#18 PATENT AND SALINE LOCKED. BED IS LOW AND LOCKED, HOB ELEVATED IN SEMI FOWLERS, SIDE RIALS UP X2, ROMMEL LIGHT WITHIN REACH. WILL CONTINUE TO MONITOR THROUGHOUT SHIFT.
[2020-10-06 20:00] VITALS: BP 176/89
[2020-10-06] MEDS: LamoTRIgine 100 MG TABLET PO SCH (21:37)
[2020-10-06 21:40] VITALS: BP 170/83
--- NOTE | 2020-10-06 21:40 | NUR ---
emergency telecommunications dispatcher note reassessed patient bp, still high at 170/83 hr 59 from 2000 vitals 173/83 hr 58. patient wishes to wait on blood pressure medication as the day RN just gave her mediation. told her i will reassess bp at 0000.
[2020-10-06] MEDS ORDERED: ATORVASTATIN 10 MG TABLET PO SCH (22:00)
[2020-10-07] VITALS: BP 156/88
[2020-10-07 04:00] VITALS: BP 146/73
[2020-10-07 06:08] LABS: BASOPHILS % (AUTO) 0.6 % (0.0-2.0); HEMATOCRIT 36 % (33-45); HEMOGLOBIN 12.2 g/dL (11.5-14.8); LYMPHOCYTES # (AUTO) 2.6 /CMM (0.8-4.8); LYMPHOCYTES % (AUTO) 31.5 % (20.0-44.0); MEAN CORPUSCULAR HGB CONC 34 g/dl (31.0-36.0); MEAN CORPUSCULAR VOLUME 94 fL (82-100); MONOCYTES # (AUTO) 0.6 /CMM (0.1-1.30); NEUTROPHILS # (AUTO) 4.7 /CMM (1.8-8.9); NEUTROPHILS % (AUTO) 56.9 % (43.0-81.0); PLATELET COUNT (AUTO) 273 /CMM (150-450); RED BLOOD CELL COUNT(AUTO) 3.89 MIL/uL (4.0-5.2); WHITE BLOOD COUNT (AUTO) 8.3 K/uL (4.3-11.0)
[2020-10-07 06:14] LABS: CALCIUM, SERUM 8.8 mg/dL (8.5-10.1); CREATININE 0.7 mg/dL (0.6-1.3); MAGNESIUM 1.8 mg/dL (1.8-2.4); PHOSPHORUS 3.9 mg/dL (2.5-4.9); POTASSIUM 4.7 mmol/L (3.5-5.1)
[2020-10-07 06:25] LABS: THYROID STIMULATING HORMONE 5.007 uIU/mL (0.358-3.74)
--- NOTE | 2020-10-07 06:54 | NUR ---
CATHEAD WORKER CLOSING NOTE PATIENT RESTING IN BED. A/OX4. NO RESP DISTRESS. TELE MONITOR READS SINUS RAUL. NO DISTRESS. IV ACCESS MAINTAINED RAC#18. BED REMAINS LOW AND LOCKED, HOB ELEVATED IN SEMI FOWLERS, SIDE RIALS UP X2, CALL LIGHT WITHIN REACH. WILL ENDORSE TO ONCOMING SHIFT.
--- NOTE | 2020-10-07 07:30 | NUR ---
RN OPENING NOTES PATIENT PRESENT IN BED, A/OX4, ON ROOM AIR, SPO2 98%, NO DORESS OR SOB NOTED, DENIES PAIN, NSB ON TELE-MONITOR , R AC IV LINE INTACT AND PATENT, LOCKED, SAFETY MEASURES IN PLACE, BED LOCKED, IN LOWEST POSITION, BED ALARM ON, CALL LIGHT IN REACH, WILL CONT O MONITOR
[2020-10-07] MEDS: CARVEDILOL 3.125 MG TABLET PO SCH (08:41)
[2020-10-07] MEDS: LamoTRIgine 100 MG TABLET PO SCH (08:41)
[2020-10-07] MEDS: METFORMIN 850 MG TABLET PO SCH (08:43)
[2020-10-07] MEDS ORDERED: LOSARTAN POTASSIUM 50 MG TABLET PO SCH (09:00)
[2020-10-07 12:00] VITALS: BP 162/71
--- NOTE | 2020-10-07 15:08 | NUR ---
, Patient is up to discharge, prepared exit care; provided education, pecan picker time at 1600, Report given to Valeri Garcia at [facility]
--- NOTE | 2020-10-07 16:52 | NUR ---
Discharged via ambulance, IV removed, ID band removed ([facility] unit # [id number])
== END 2020-10-07 16:41 | DRG 74 ==
LOC: ER 13:17 → UNDOADMIN 17:17 → MED 17:17 → MEDSG1 20:11 → TELE1 10-07 00:51 → MEDSG1 10-07 08:05
PROVIDERS: ADMIT Nurse Practitioner Acute Care; ATTEND Nurse Practitioner Acute Care
DX: G90.8 Other disorders of autonomic nervous system (principal); G20 Parkinson's disease; E11.9 Type 2 diabetes mellitus without complications; I10 Essential (primary) hypertension; E03.9 Hypothyroidism, unspecified; Z20.822 Contact with and (suspected) exposure to COVID-19; Z79.84 Long term (current) use of oral hypoglycemic drugs; Z79.02 Long term (current) use of antithrombotics/antiplatelets; Z79.899 Other long term (current) drug therapy; Z91.81 History of falling; M19.90 Unspecified osteoarthritis, unspecified site; E78.5 Hyperlipidemia, unspecified; Z74.09 Other reduced mobility
CPT/HCPCS: 36415; 70450-TC; 71045-TC; 80048-TC; 80061-TC; 80076-TC; 82962-TC; 83735-TC; 84100-TC; 84443-TC; 84484-TC; 85025-TC; 85652-TC; 85730-TC; 87081-TC; 93307-TC; 97116-TC; 97530-TC; C9803; G0378; J7040; J8597; U0003